=== PATIENT | female | born 1950 | race Caucasian/White ===

== ENCOUNTER 2017-03-02 00:44 | Inpatient (IN) ==
[2017-03-02 01:28] LABS: Basophils % 0.3 %; Eosinophils # 0.1 K/mcL (0.0-0.6); Eosinophils % 0.9 %; Hemoglobin 13.1 g/dL (11.5-15.4); Immature Granulocytes % 0.4 % (0-4); Lymphocytes # 2.6 K/mcL (0.6-4.6); Lymphocytes % 22.5 %; Mean Corpuscular HGB Conc 32.8 g/dL (31.6-35.5); Mean Corpuscular Hemoglobin 28.9 pg (28.0-33.3); Mean Corpuscular Volume 88.3 fL (83.0-100.0); Mean Platelet Volume 9.9 fL (9.4-12.4); Monocytes # 0.5 K/mcL (0.0-1.3); Monocytes % 4.1 %; Neutrophils # 8.3 K/mcL (1.6-8.9); Platelet Count 265 K/mcL (140-400); Red Blood Count 4.53 M/mcL (3.82-4.97); Segmented Neutrophils % 71.8 %
[2017-03-02 01:42] LABS: BUN/Creatinine Ratio 15 (6-26); Blood Urea Nitrogen 13 mg/dL (7-20); Calcium 10.8 mg/dL (8.6-10.8); Carbon Dioxide 27 mEq/L (19-29); Chloride 98 mEq/L (98-109); Glucose 359 mg/dL (70-99); Osmolality,Calculated 301 (280-300); Potassium 3.9 mEq/L (3.5-4.5); Sodium 138 mEq/L (136-145); eGFR For African Americans > 60 (> 60); eGFR For Non-African Americans > 60 (> 60)
[2017-03-02] MEDS ORDERED: Aspirin 81 MG TAB.CHEW PO ONE (04:06)
[2017-03-02] MEDS ORDERED: *HR* Heparin 5,000 UNIT/ML VIAL IVP PRN (04:15)
[2017-03-02] MEDS ORDERED: Heparin 25,000 UNIT/500 ML D5W 25,000 UNIT/500 ML MLS IVC SCH (04:15)
[2017-03-02] MEDS ORDERED: *HR* Heparin 5,000 UNIT/ML VIAL IVP ONE (04:15)
[2017-03-02 04:25] LABS: INR 1.1; Prothrombin Time 11.8 Seconds (9.4-12.1)
[2017-03-02 04:28] LABS: Activated Partial Thrombo Time 28.9 Seconds (26.0-36.0)
--- NOTE | 2017-03-02 05:04 | Emergency Department Note ---
Disposition Clinical Impression: NSTEMI (non-ST elevated myocardial infarction) Chest pain Qualifiers: Chest pain type: chest pain due to myocardial ischemia Ischemic chest pain type : stable angina pectoris Qualified Code(s): I20.8 - Other forms of angina pectoris Disposition: Admitted As Inpatient Condition: Fair Chest Pain HPI - General Chief Complaint: ED Chest Pain Stated Complaint: chest pain Time Seen by Provider: 03/02/17 03:10 Source: patient, family Limitations: no limitations Vital Signs Reviewed: Yes Nursing Notes Reviewed: Yes - History of Present Illness HPI Narrative: 67-year-old female presents to the emergency department with a complaint of sharp mid substernal chest pain which started about 11 PM this evening while she was sitting on her couch watching television. She states the pain radiated to the left shoulder and straight through to her back to the left scapular area. She rated the pain a 9 out of 10 at the worst. At present time she denies any pain and states the pain has resolved. She states the pain was worse with taking a deep breath or with coughing. She has had a dry nonproductive cough for the past several months. She denies any fever. She does have COPD and continues to smoke. She denies any increased shortness of breath with the episode of chest pain. No nausea or vomiting. No diaphoresis. She has a strong cardiac history with prior history of [place], coronary artery stents, CABG, and CHF. Pt complaint: chest pain Onset (ago): hour(s) (1) Duration: constant, now resolved Onset: during rest Pain Location: substernal Severity: severe Severity scale (1-10): 9 Quality: sharp Pain Radiation: LUE, back Improves with: nothing Worsens with: other (Coughing or deep breathing.) Associated symptoms: Reports: cough. Denies: nausea, vomiting, diaphoresis, dyspnea, sense of impending doom, syncope, palpitations, fever, leg swelling Treatments prior to arrival chest pain: nitroglycerin - Related Data Home Medications Medication Instructions Recorded Confirmed ALPRAZolam [Xanax 0.5 MG Tablet] 0.5 mg PO TID 04/30/16 05/09/16 Albuterol Sulfate [Proventil Hfa] 1 puff IH BID PRN 04/30/16 05/09/16 Cyclobenzaprine [Flexeril] 10 mg PO TID 04/30/16 05/09/16 Etodolac 400 mg PO BID 04/30/16 05/09/16 Ezetimibe [Zetia] 10 mg PO DAILY 04/30/16 05/09/16 FluocinoLONE Acet 0.025% CRM 1 appl TP BID 04/30/16 05/09/16 [Fluocinolone Acet 0.025% CRM] Gabapentin [Neurontin] 300 mg PO TID 04/30/16 05/09/16 Insulin ASPART [Novolog Flexpen] 20 unit SQ TID 04/30/16 05/09/16 Insulin Glargine,Hum.rec.anlog 30 unit SQ DAILY 04/30/16 05/09/16 [Lantus Solostar] Metformin HCl [Glucophage] 1,000 mg PO BIDWM 04/30/16 05/09/16 Metoclopramide [Reglan] 5 mg PO ACHS 04/30/16 05/09/16 Niacin [Niaspan] 500 mg PO HS 04/30/16 05/09/16 Nitroglycerin [Nitrostat] 0.4 mg SL AD PRN 04/30/16 05/09/16 Omeprazole [PriLOSEC] 40 mg PO BID 04/30/16 05/09/16 Pioglitazone [Actos] 45 mg PO DAILY 04/30/16 05/09/16 Potassium Chloride [K-Tab ER] 10 meq PO DAILY 04/30/16 05/09/16 Sertraline [Zoloft] 25 mg PO DAILY 04/30/16 05/09/16 traMADol [Ultram] 50 mg PO TID PRN 04/30/16 05/09/16 Previous Rx's Medication Instructions Recorded Oxycodone HCl/Acetaminophen 1 each PO Q6HR PRN #10 tablet 03/04/16 [Percocet 5-325 mg Tablet] Aspirin Enteric Coated [Aspirin EC] 81 mg PO DAILY #30 tablet. 05/03/16 Atorvastatin Calcium [Lipitor] 80 mg PO HS #30 tablet 05/10/16 Lisinopril 2.5 mg PO DAILY #30 tablet 05/10/16 Metoprolol XL (24 HR) Succ [Toprol 12.5 mg PO DAILY #15 tab.er.24h 05/10/16 Xl] Ranolazine [Ranexa] 500 mg PO BID #60 tab.er.12h 05/10/16 Ticagrelor [Brilinta] 90 mg PO BID #60 tablet 05/10/16 Allergies Allergy/AdvReac Type Severity Reaction Status Date / Time acetaminophen [From Vicodin] Allergy Hives Verified 03/04/16 11:14 codeine Allergy Itching Verified 05/09/16 08:45 hydrocodone [From Vicodin] Allergy Hives Verified 03/04/16 11:14 Penicillins Allergy Rash Verified 03/04/16 11:14 isosorbide AdvReac Headache Verified 03/04/16 11:14 All systems ED: reviewed and negative except as stated. Constitutional: Denies: fever Cardiovascular: Reports: chest pain Respiratory: Reports: cough. Denies: dyspnea Gastrointestinal: Denies: abdominal pain, nausea, vomiting Musculoskeletal: Reports: back pain. Denies: neck pain Chest Pain PMH - Past Medical History Medical history: Reports: CHF, coronary artery disease, diabetes, hyperlipidemia , hypertension, myocardial infarction Surgical history: Reports: angioplasty/stent, coronary bypass (CABG), hysterectomy Psychiatric history: Reports: depression - Social History Smoking Status: Current some day smoker Alcohol use: Reports: none Drug use: Reports: none Physical Exam - General Limitations: no limitations General appearance: alert, in no apparent distress, anxious - Head Head exam: atraumatic, normocephalic, normal inspection - Eye Eye exam: Present: normal appearance, PERRL, EOMI. Absent: scleral icterus, conjunctival injection - ENT ENT exam: normal exam, normal oropharynx, mucous membranes moist, TM's normal bilaterally, normal external ear exam - Neck Neck exam: Present: normal inspection, full ROM, trachea midline. Absent: tenderness, meningismus, lymphadenopathy - Chest Chest inspection: Present: normal inspection, symmetric chest wall rise, tenderness (There is mild tenderness to palpation over the anterior chest wall with no bony crepitus or subcutaneous emphysema.) - Respiratory Respiratory exam: Present: wheezes (A few scattered expiratory wheezes.). Absent: normal lung sounds bilaterally (Breath sounds decreased bilaterally.), respiratory distress - Cardiovascular Cardiovascular exam: Present: regular rate, normal rhythm, normal heart sounds - Abdominal Exam Abdominal exam: Present: soft, Non-Tender, normal bowel sounds - Extremities Exam Extremities exam: Present: normal inspection, full ROM. Absent: tenderness, calf tenderness - Back Exam Back exam: Present: normal inspection. Absent: CVA tenderness (R), CVA tenderness (L) - Neurological Exam Neurological exam: Present: alert, oriented X3. Absent: motor sensory deficit - Psychiatric Psychiatric exam: Present: anxious - Skin Skin exam: Present: warm, dry, intact, normal color. Absent: cyanosis, diaphoresis Course Course Narrative: 67-year-old female with strong cardiac history presents to the emergency department with a complaint of an episode of substernal chest pain while at rest. Describes pain as sharp and pleuritic and worse with coughing or deep breathing. Pain does not sound cardiac. No acute changes on EKG. Initial troponin 0.01. Plan was to repeat a troponin after 2 hours and if it remains normal to let patient go home and follow-up as an outpatient however the repeat troponin was significantly elevated at 0.19. The hospitalist, Dr. De Guzman, was consulted and accepted admission of the patient. Patient received aspirin and started on low dose heparin bolus and infusion. - Consultations Consultation #1: The hospitalist, Dr. De Guzman, was consulted and accepted admission of the patient. Time: 04:10 Vital Signs Temperature 97.4 F L 03/02/17 00:47 Pulse Rate 89 03/02/17 00:47 Respiratory Rate 18 03/02/17 00:47 Blood Pressure 139/54 03/02/17 00:47 O2 Sat by Pulse Oximetry 96 03/02/17 00:47 Temperature 97.5 F L 03/02/17 07:27 Pulse Rate 85 03/02/17 07:27 Respiratory Rate 18 03/02/17 07:27 Blood Pressure 104/58 03/02/17 07:27 O2 Sat by Pulse Oximetry 96 03/02/17 07:27 Oxygen Delivery Oxygen Delivery Room Air Chest Pain - Medical Records Medical records reviewed: Yes I reviewed the patient's medical records. - Lab Data Lab results reviewed: Yes I reviewed the patient's lab results. Result diagrams: 03/02/17 01:20 03/02/17 01:20 Lab Results 03/02/17 03/02/17 03/02/17 Range/Units 01:20 01:20 01:20 WBC 11.6 H (4.3-11.1) K/mcL RBC 4.53 (3.82-4.97) M/mcL Hgb 13.1 (11.5-15.4) g/dL Hct 40.0 (35.3-44.9) % MCV 88.3 (83.0-100.0) fL MCH 28.9 (28.0-33.3) pg MCHC 32.8 (31.6-35.5) g/dL RDW 14.0 (11.5-14.5) % Plt Count 265 (140-400) K/mcL MPV 9.9 (9.4-12.4) fL Immature Gran % 0.4 (0-4) % Seg Neutrophils % 71.8 % Lymphocytes % 22.5 % Monocytes % 4.1 % Eosinophils % 0.9 % Basophils % 0.3 % Neutrophils # 8.3 (1.6-8.9) K/mcL Lymphocytes # 2.6 (0.6-4.6) K/mcL Monocytes # 0.5 (0.0-1.3) K/mcL Eosinophils # 0.1 (0.0-0.6) K/mcL Basophils # 0.0 (0.0-0.2) K/mcL PT (9.4-12.1) Seconds INR APTT (26.0-36.0) Seconds Sodium 138 (136-145) mEq/L Potassium 3.9 (3.5-4.5) mEq/L Chloride 98 (98-109) mEq/L Carbon Dioxide 27 (19-29) mEq/L BUN 13 (7-20) mg/dL Creatinine 0.84 (0.57-1.11) mg/dL Est GFR ( Amer) > 60 (> 60) Est GFR (Non-Af Amer) > 60 (> 60) BUN/Creatinine Ratio 15 (6-26) Glucose 359 H (70-99) mg/dL Calculated Osmolality 301 H (280-300) Calcium 10.8 (8.6-10.8) mg/dL Troponin I 0.01 (0-0.03) ng/mL 03/02/17 03/02/17 Range/Units 01:20 03:29 WBC (4.3-11.1) K/mcL RBC (3.82-4.97) M/mcL Hgb (11.5-15.4) g/dL Hct (35.3-44.9) % MCV (83.0-100.0) fL MCH (28.0-33.3) pg MCHC (31.6-35.5) g/dL RDW (11.5-14.5) % Plt Count (140-400) K/mcL MPV (9.4-12.4) fL Immature Gran % (0-4) % Seg Neutrophils % % Lymphocytes % % Monocytes % % Eosinophils % % Basophils % % Neutrophils # (1.6-8.9) K/mcL Lymphocytes # (0.6-4.6) K/mcL Monocytes # (0.0-1.3) K/mcL Eosinophils # (0.0-0.6) K/mcL Basophils # (0.0-0.2) K/mcL PT 11.8 (9.4-12.1) Seconds INR 1.1 APTT 28.9 (26.0-36.0) Seconds Sodium (136-145) mEq/L Potassium (3.5-4.5) mEq/L Chloride (98-109) mEq/L Carbon Dioxide (19-29) mEq/L BUN (7-20) mg/dL Creatinine (0.57-1.11) mg/dL Est GFR ( Amer) (> 60) Est GFR (Non-Af Amer) (> 60) BUN/Creatinine Ratio (6-26) Glucose (70-99) mg/dL Calculated Osmolality (280-300) Calcium (8.6-10.8) mg/dL Troponin I 0.19 H* (0-0.03) ng/mL - Radiology Data Radiology results reviewed: Yes I reviewed the patient's radiology results. No acute abnormality on chest x-ray. - EKG Data EKG attestation: Yes I reviewed and interpreted this EKG. EKG results narrative: EKG shows a normal sinus rhythm with a heart rate of 86. Nonspecific T-wave abnormality. No acute ST segment elevation or depression. EKG shows normal: sinus rhythm Rate: normal Rhythm: NSR Interpretation: no acute changes, nonspecific ST-T wave changes Critical Care Time Critical Care Time: Yes Total Critical Care Time: 45 Attestation: Critical care performed: Time is exclusive of separately billable procedures. Time includes: direct patient care, patient reassessment, coordination of patient care, interpretation of data (laboratory data, radiology data, and respiratory data), review of patient's medical records, medical consultation and documentation of patient care. Procedures included in critical care time: Procedures excluded from critical care time:
--- NOTE | 2017-03-02 05:29 | Internal Med History&Physical ---
Date of Encounter: 03/02/17 Time of Encounter: 05:26 Assessment and Plan (1) Chest pain Current visit: Yes Status: Acute chests pain free now, possible 2/2 NSTEMI. took 3 nitro at home and received morphine at ED. Qualifiers: Chest pain type: chest pain due to myocardial ischemia Ischemic chest pain type: stable angina pectoris Qualified Code(s): I20.8 - Other forms of angina pectoris (2) NSTEMI (non-ST elevated myocardial infarction) Current visit: No Status: Acute initial trop negative, repeat trop is 0.19 cureently chest pain free, have started on heparin drip. will continue asa,plavix, statin adn BB, hemodynamically stable. will keep NPO, may need C consult cardio. 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 taking DAPT (ASA and Brilinta) , will continue continue otehr home meds Qualifiers: [place] vs. transplanted heart: [place] heart Associated angina: with other forms of angina Qualified Code(s): I25.118 - Atherosclerotic heart disease of [place] coronary artery with other forms of angina pectoris (5) HTN (hypertension) Current visit: No Status: Chronic continue home meds, BP controlled Qualifiers: Hypertension type: essential hypertension Qualified Code(s): I10 - Essential (primary) hypertension Internal Medicine - H&P: HPI Chief complaint: chest pain Admitted From: Home Plans for Post Hospital Care: Home History of present illness: Ms. Whitmore is a 67 year old female with a history of CAD s/p stent in 2003 and 05/11 and CABG in 2005 comes in with chest pain. she says she had a ham sandwich last night and was watching TVwhen she felt the chest pain which was midsternal and radiated to her neck and the back. she deies n/v/diaphoresis. she reports dry hacking cough but no fever. titus took 3 nitro at home which did not relieve her pain, thus came to ed. she was given morphine, initial trop is neg, repeat trop went up to 0.19 and was started on heparin drip she reports compliance to her meds. Past Med Surg Social Fam HX - Past Medical History Medical history: CHF, coronary artery disease, diabetes, hyperlipidemia, hypertension, myocardial infarction Psychiatric history: depression - Past Surgical History Surgical History: angioplasty/stent, coronary bypass (CABG), hysterectomy - Social History Smoking Status: Current some day smoker Smokeless Tobacco Status: No Alcohol use: none Drug use: none Internal Medicine - H&P: Meds Oxycodone HCl/Acetaminophen [Percocet 5-325 mg Tablet] 1 each PO Q6HR PRN #10 tablet 03/04/16 [Rx] ALPRAZolam [Xanax 0.5 MG Tablet] 0.5 mg PO TID 04/30/16 [History] Albuterol Sulfate [Proventil Hfa] 1 puff IH BID PRN 04/30/16 [History] Cyclobenzaprine [Flexeril] 10 mg PO TID 04/30/16 [History] Etodolac 400 mg PO BID 04/30/16 [History] Ezetimibe [Zetia] 10 mg PO DAILY 04/30/16 [History] FluocinoLONE Acet 0.025% CRM [Fluocinolone Acet 0.025% CRM] 1 appl TP BID [History] Gabapentin [Neurontin] 300 mg PO TID 04/30/16 [History] Insulin ASPART [Novolog Flexpen] 20 unit SQ TID 04/30/16 [History] Insulin Glargine,Hum.rec.anlog [Lantus Solostar] 30 unit SQ DAILY 04/30/16 [ History] Metformin HCl [Glucophage] 1,000 mg PO BIDWM 04/30/16 [History] Metoclopramide [Reglan] 5 mg PO ACHS 04/30/16 [History] Niacin [Niaspan] 500 mg PO HS 04/30/16 [History] Nitroglycerin [Nitrostat] 0.4 mg SL AD PRN 04/30/16 [History] Omeprazole [PriLOSEC] 40 mg PO BID 04/30/16 [History] Pioglitazone [Actos] 45 mg PO DAILY 04/30/16 [History] Potassium Chloride [K-Tab ER] 10 meq PO DAILY 04/30/16 [History] Sertraline [Zoloft] 25 mg PO DAILY 04/30/16 [History] traMADol [Ultram] 50 mg PO TID PRN 04/30/16 [History] Aspirin Enteric Coated [Aspirin EC] 81 mg PO DAILY #30 tablet.dr 05/03/16 [Rx] Atorvastatin Calcium [Lipitor] 80 mg PO HS #30 tablet 05/10/16 [Rx] Lisinopril 2.5 mg PO DAILY #30 tablet 05/10/16 [Rx] Metoprolol XL (24 HR) Succ [Toprol Xl] 12.5 mg PO DAILY #15 tab.er.24h 05/10/16 [Rx] Ranolazine [Ranexa] 500 mg PO BID #60 tab.er.12h 05/10/16 [Rx] Ticagrelor [Brilinta] 90 mg PO BID #60 tablet 05/10/16 [Rx] Allergies acetaminophen [From Vicodin] Allergy (Verified 03/04/16 11:14) Hives codeine Allergy (Verified 05/09/16 08:45) Itching hydrocodone [From Vicodin] Allergy (Verified 03/04/16 11:14) Hives Penicillins Allergy (Verified 03/04/16 11:14) Rash isosorbide Adverse Reaction (Verified 03/04/16 11:14) Headache All Systems PM: A 10-system review of systems was performed and is negative for pertinent findings except as documented above in the HPI. - Constitutional Constitutional: as per HPI - EENT Eyes: as per HPI Ears: as per HPI Nose, mouth and throat: as per HPI - Breasts Breasts: as per HPI - Cardiovascular Cardiovascular ROS IM: chest pain - Respiratory Respiratory: as per HPI - Gastrointestinal Gastrointestinal: as per HPI - Genitourinary Genitourinary: as per HPI - Constitutional Vitals: Temp Pulse Resp BP Pulse Ox 97.4 F L 85 18 103/61 95 03/02/17 00:47 03/02/17 04:57 03/02/17 04:57 03/02/17 04:57 03/02/17 04:57 General appearance: Present: A&O X 3, no acute distress Exam: - Eye Eye exam: Present: PERRL - ENT ENT exam: Present: mucous membranes moist - Neck Neck exam general surgery: Present: normal inspection - Respiratory Respiratory exam: Present: CTAB. Absent: rales, rhonchi - Cardiovascular Cardiovascular exam: Present: RRR, +S1, +S2. Absent: gallop, +S3 Additional comments: Central scar on chest wall - GI/Abdominal GI/Abdominal exam: Present: normal bowel sounds, soft. Absent: tenderness - Extremities Exam no edema - Back Exam Back exam: Present: normal inspection - Neurological Exam Neurological exam: Present: normal gait Internal Med - H&P Results - Labs CBC & Chem 7: 03/02/17 01:20 03/02/17 01:20
[2017-03-02] MEDS ORDERED: Naloxone 0.4 MG/ML INJ IVP PRN (05:35)
[2017-03-02] MEDS ORDERED: *HR* Morphine 2 MG/ML SYRINGE IVP PRN (05:35)
[2017-03-02] MEDS ORDERED: Nitroglycerin 0.4 MG TAB.SUBL SL PRN (05:37)
[2017-03-02] MEDS ORDERED: 0.9 % Sodium Chloride 250 ML ONE (05:58)
[2017-03-02] MEDS: Aspirin Enteric Coated 81 MG Tablet PO SCH (08:49)
[2017-03-02] MEDS: ALPRAZolam 0.5 MG TABLET PO SCH ×3 (08:49→21:13)
[2017-03-02] MEDS: Metoprolol XL (24 HR) Succ 25 MG TAB.ER.24H PO SCH (08:49)
[2017-03-02] MEDS: Ranolazine 500 MG TAB.ER.12H PO SCH ×2 (08:49→21:13)
[2017-03-02] MEDS: *HR* Ticagrelor 90 MG TABLET PO SCH ×2 (08:50→21:13)
[2017-03-02] MEDS: (Ezetimibe [Zetia] 10 MG) PO SCH (08:50)
[2017-03-02] MEDS: 0.9 % Sodium Chloride 1,000 ML IVC SCH ×2 (09:18→21:14)
[2017-03-02] MEDS: *HR* Heparin 5,000 UNIT/ML VIAL IVP PRN ×2 (11:06→17:17)
--- NOTE | 2017-03-02 11:34 | Cardiology Consult Note ---
<Angelique Montoya Dominic - Last Filed: 03/02/17 12:09> Date of Encounter: 03/02/17 Time of Encounter: 11:00 Assessment and Plan (1) NSTEMI (non-ST elevated myocardial infarction) Current Visit: Yes Status: Acute Initial troponin negative, 0.19, 2.81. Non-specific ST/T wave ECG changes. Pain free upon exam. Significant hx of obstructive CAD--recent LM stent in 04/2016. Reports may have missed dose (s) of brilinta early this week. Continue heparin gtt. Start NTG gtt if develops chest pain. Continue statin, brilinta, ranexa, and betablocker. Will check limited echocardiogram to assess LVEF. Recommend [facility] with possible PCI in AM--will further discuss with Dr. Muñiz. NPO after MN except medications. Further recommendations to follow. (2) CAD (coronary artery disease) Current Visit: Yes Status: Chronic Plan as stated above. Discussion w patient/family: The assessment and plan as outlined above was discussed with the patient and/or family members who expressed understanding and agreement. All questions were answered. Thank you for involving us in the care of your patient. Please call with any questions. The patient will be discussed and reviewed with Dr. Muñiz; changes to be made accordingly. History of Present Illness Consult date: 03/02/17 Requesting physician: Terrance Tatum Consult reason: NSTEMI Chief complaint: Chest pain History of present illness: Ms. Whitmore is a 67 year old female with PMHx significant for CAD s/p CABG, PCI, DMII, HTN, HLD, and tobacco abuse who presented to the ED after an episode of chest pain that occurred around 11PM last night. She tells me she feels the pain was provoked by a coughing spell that occurred a few hours earlier. Chest pain described as heaviness/pressure with radiation to left arm/shoulder/neck. She took x2 NTG at home which did not improve pain; she therefore went to the ED. States she was in her normal state of health up until yesterday. States may have missed a dose of brilinta this past week. Initial troponin negative, then 0.19. No concerning ECG changes noted. Recent CV testing: TTE 05/02/16: LVEF 60%, normal wall motion, no significant valvular dysfunction LHC 05/03/16: LVEF 45% inferoapical hypokinesis; s/p successful PTCA/NAYELY in the ostial proximal RCA; otherwise 70% LMCA, 20% pLAD, 99% pLCX (SVG-OM supplies ); SVG-1st OM is patent, distal OM small vessel with 90% stenosis, DEAN-mLAD is nonfunctional [facility] 05/09/16 (staged): successful PTCA/NAYELY in the LM postdilated with 3.5 NC with IVUS guidance. Past Med Surg Social Fam HX - Past Medical History Medical history: coronary artery disease, diabetes, hyperlipidemia, hypertension , myocardial infarction Psychiatric history: depression - Past Surgical History Surgical History: angioplasty/stent, coronary bypass (CABG), hysterectomy - Social History Smoking Status: Current some day smoker Smokeless Tobacco Status: No Alcohol use: none Drug use: none Medications and Allergies Oxycodone HCl/Acetaminophen [Percocet 5-325 mg Tablet] 1 each PO Q6HR PRN #10 tablet 03/04/16 [Rx] ALPRAZolam [Xanax 0.5 MG Tablet] 0.5 mg PO TID 04/30/16 [History] Albuterol Sulfate [Proventil Hfa] 1 puff IH BID PRN 04/30/16 [History] Cyclobenzaprine [Flexeril] 10 mg PO TID 04/30/16 [History] Etodolac 400 mg PO BID 04/30/16 [History] Ezetimibe [Zetia] 10 mg PO DAILY 04/30/16 [History] FluocinoLONE Acet 0.025% CRM [Fluocinolone Acet 0.025% CRM] 1 appl TP BID [History] Gabapentin [Neurontin] 300 mg PO TID 04/30/16 [History] Insulin ASPART [Novolog Flexpen] 20 unit SQ TID 04/30/16 [History] Insulin Glargine,Hum.rec.anlog [Lantus Solostar] 30 unit SQ DAILY 04/30/16 [ History] Metformin HCl [Glucophage] 1,000 mg PO BIDWM 04/30/16 [History] Metoclopramide [Reglan] 5 mg PO ACHS 04/30/16 [History] Niacin [Niaspan] 500 mg PO HS 04/30/16 [History] Nitroglycerin [Nitrostat] 0.4 mg SL AD PRN 04/30/16 [History] Omeprazole [PriLOSEC] 40 mg PO BID 04/30/16 [History] Pioglitazone [Actos] 45 mg PO DAILY 04/30/16 [History] Potassium Chloride [K-Tab ER] 10 meq PO DAILY 04/30/16 [History] Sertraline [Zoloft] 25 mg PO DAILY 04/30/16 [History] traMADol [Ultram] 50 mg PO TID PRN 04/30/16 [History] Aspirin Enteric Coated [Aspirin EC] 81 mg PO DAILY #30 tablet.dr 05/03/16 [Rx] Atorvastatin Calcium [Lipitor] 80 mg PO HS #30 tablet 05/10/16 [Rx] Lisinopril 2.5 mg PO DAILY #30 tablet 05/10/16 [Rx] Metoprolol XL (24 HR) Succ [Toprol Xl] 12.5 mg PO DAILY #15 tab.er.24h 05/10/16 [Rx] Ranolazine [Ranexa] 500 mg PO BID #60 tab.er.12h 05/10/16 [Rx] Ticagrelor [Brilinta] 90 mg PO BID #60 tablet 05/10/16 [Rx] Allergies acetaminophen [From Vicodin] Allergy (Verified 03/02/17 11:44) Hives hydrocodone [From Vicodin] Allergy (Verified 03/02/17 11:44) Hives Penicillins Allergy (Verified 03/02/17 11:44) Rash codeine Adverse Reaction (Verified 03/02/17 11:44) Itching isosorbide Adverse Reaction (Verified 03/02/17 11:44) Headache All Systems Review: A 10-system review of systems was performed and is negative for pertinent findings except as documented above in the HPI. - Cardiovascular Cardiovascular: as per HPI Physical Examination Vital Signs, Last 4 Hours Temp Pulse Resp BP Pulse Ox 03/02/17 10:30 97.6 F 88 18 129/65 96 03/02/17 08:50 96 03/02/17 07:27 97.5 F L 85 18 104/58 96 General: Conversant, No Apparent Distress HEENT: Atraumatic, Normocephaly, Mucus Membranes Moist Cardiac: Reg Rate and Rhythm, Normal S1 and S2 Lungs: Normal Breath Sounds Neuro: Alert and responsive Abdomen: Soft Skin: No rashes noted on visualized skin Musculoskeletal: No Chest Wall Tenderness Extremities: No Edema, Normal Pulses Results 03/02/17 01:20 03/02/17 01:20 Lab Results 03/02/17 03/02/17 10:18 10:18 APTT 42.5 H Troponin I 2.81 H* Active Medications Alprazolam (Xanax) 0.5 mg PO TID [place] PRN Reason: Protocol Stop: 09/01/17 09:01 Last Admin: 03/02/17 08:49 Dose: 0.5 mg Aspirin (Aspirin Ec) 81 mg PO DAILY [place] Stop: 09/01/17 09:01 Last Admin: 03/02/17 08:49 Dose: 81 mg Atorvastatin Calcium (Lipitor) 80 mg PO HS [facility] Stop: 09/01/17 21:01 Cyclobenzaprine HCl (Flexeril) 10 mg PO TID [place] Stop: 09/01/17 09:01 Last Admin: 03/02/17 08:50 Dose: 10 mg Heparin Sodium (Porcine) (Heparin) 3,100 unit 60 unit/kg (3100 unit) IVP Q6HR PRN PRN Reason: SEE COMMENTS Stop: 09/01/17 04:16 Heparin Sodium (Porcine) (Heparin) 1,600 unit 30 unit/kg (1600 unit) IVP Q6H PRN PRN Reason: SEE COMMENTS Stop: 09/01/17 04:16 Last Admin: 03/02/17 11:06 Dose: 1,600 unit Heparin Sodium/Dextrose (Heparin 25,000 Unit/500 Ml D5w) 25,000 unit in 500 mls @ 12.41 mls/hr IVC .Q24H [place]; 12 UNIT/KG/HR PRN Reason: Protocol Stop: 09/01/17 04:16 Last Titration: 03/02/17 11:09 Dose: 14 unit/kg/hr, 14.479 mls/hr Sodium Chloride (0.9 % Sodium Chloride) 1,000 mls @ 80 mls/hr IVC .[id number] [facility] Stop: 09/01/17 05:46 Last Admin: 03/02/17 09:18 Dose: 80 mls/hr Lisinopril (Zestril) 2.5 mg PO DAILY [place] Stop: 09/01/17 09:01 Last Admin: 03/02/17 08:50 Dose: Not Given Metoprolol Succinate (Toprol Xl) 12.5 mg PO DAILY [place] Stop: 09/01/17 09:01 Last Admin: 03/02/17 08:49 Dose: 12.5 mg Morphine Sulfate (Morphine Sulfate) 2 mg IVP Q4HR PRN PRN Reason: Severe Pain (7-10) Stop: 09/01/17 05:36 Last Admin: 03/02/17 11:19 Dose: 2 mg Naloxone HCl (Narcan) 0.4 mg IVP Q2MIN PRN PRN Reason: Opioid Reversal Stop: 09/01/17 05:36 Nitroglycerin (Nitroglycerin) 0.4 mg SL AD PRN PRN Reason: Chest Pain Stop: 09/01/17 05:38 Pharmacy Profile Note (Patient Taking Own Medication) 0 each PO DAILY [place] Stop: 09/01/17 09:01 Last Admin: 03/02/17 08:50 Dose: Not Given Ranolazine (Ranexa) 500 mg PO BID [place] Stop: 09/01/17 09:01 Last Admin: 03/02/17 08:49 Dose: 500 mg Sertraline HCl (Zoloft) 25 mg PO DAILY [place] Stop: 09/01/17 09:01 Last Admin: 03/02/17 08:50 Dose: 25 mg Ticagrelor (Brilinta) 90 mg PO BID [place] Stop: 09/01/17 09:01 Last Admin: 03/02/17 08:50 Dose: 90 mg - Imaging and Cardiology Echo: report reviewed Cardiac cath: report reviewed Other Results: 12 hour tele: avg HR=84 SR. No significant event noted. - EKG Interpretation EKG results cardiology: personally reviewed Consult Discharge Plan - Plan Referrals: aDna Paige, [employer]PERVISOR [Primary Care Provider] - <Ellen Muñiz - Last Filed: 03/02/17 16:20> Date of Encounter: 03/02/17 Assessment and Plan Discussion w patient/family: The assessment and plan as outlined above was discussed with the patient and/or family members who expressed understanding and agreement. All questions were answered. Thank you for involving us in the care of your patient. Please call with any questions. History of Present Illness History of present illness: Ms. Whitmore is a 67 year old female All Systems Review: A 10-system review of systems was performed and is negative for pertinent findings except as documented above in the HPI. Physical Examination Vital Signs, Last 4 Hours Temp Pulse Resp BP Pulse Ox 03/02/17 15:04 97.4 F L 81 16 101/59 96 Results 03/02/17 01:20 03/02/17 01:20 Lab Results 03/02/17 03/02/17 10:18 10:18 APTT 42.5 H Troponin I 2.81 H* - Attending Attestation I examined this patient and my medical decision-making was reviewed with the OPERATIONS RESEARCH ENGINEER/PA/Advanced Practice Nurse/Resident Physician. I agree with the documented findings, disposition and treatment plan. Ms. Whitmore presented with an episode of chest pain and has troponin elevation. She has known CAD having undergone cath with PCI in April 2016. She is not sure if she missed her Brilinta this week. Her troponin now has risen to 2.[address] changes on ECG. Recommend consideration for LHC given NTEMI. She is presently chest pain free. Will discuss with her primary [employer] police officer and interventionalist, Dr. Hutton tomorrow. For now, agree with continuing heparin gtt, statin, brilinta, ranexa and BB. Echo pending.
--- NOTE | 2017-03-02 12:10 | Internal Med Progress Note ---
<Reji Valencia - Last Filed: 03/02/17 13:28> Date of Encounter: 03/02/17 Time of Encounter: 10:00 - Assessment and plan (1) Chest pain Current Visit: Yes Status: Acute Assessment and plan: Patient denies having chest pain at the present time. -Patient's chest pain was likely secondary to NSTEMI. -Patient took 3 nitroglycerin at home when she started experiencing her chest pain, but they were ineffective. -Cardiology has been consulted. Qualifiers: Chest pain type: chest pain due to myocardial ischemia Ischemic chest pain type: stable angina pectoris Qualified Code(s): I20.8 - Other forms of angina pectoris (2) NSTEMI (non-ST elevated myocardial infarction) Current Visit: Yes Status: Acute Assessment and plan: Patient's initial troponin levels were negative. Repeat troponin levels were 0.19. -This morning however patient's troponin levels increased to 2.81. -Patient was immediately seen, and had no significant findings on physical exam. -She did not having any chest pain, sweating, nausea, vomiting, shortness of breath. (3) HTN (hypertension) Current Visit: No Status: Chronic Assessment and plan: Continue Home medications. Qualifiers: Hypertension type: essential hypertension Qualified Code(s): I10 - Essential (primary) hypertension (4) Type 2 diabetes mellitus Current Visit: No Status: Chronic Qualifiers: Diabetes mellitus complication status: with unspecified complications Diabetes mellitus intermediate school teacher insulin use: unspecified intermediate school teacher insulin use status Qualified Code(s): E11.8 - Type 2 diabetes mellitus with unspecified complications - Subjective Interval history: Patient is a 67-year-old female who presented to the emergency department with chief complaint of chest pain. She has a past medical history of coronary artery disease. She states that she was eating dinner last night watching TV when she felt a chest pain in her substernal area. She attempted to relieve the pain with nitroglycerin, but it was ineffective. On presentation, she had a dry hacking cough, but no nausea, vomiting, fever, or sweating. In the ER, she was given morphine, her initial troponin levels were negative, and a repeat troponin was 0.19. Patient was started on a heparin drip. She was seen and examined at bedside this morning. She denied having any chest pain, shortness of breath, nausea, vomiting, or sweating. She states that the only pain that she is currently experiencing is in her knees, and that this is a problem she has had for many years. - Constitutional Vitals: Temp Pulse Resp BP Pulse Ox 97.6 F 88 18 129/65 96 03/02/17 10:30 03/02/17 10:30 03/02/17 10:30 03/02/17 10:30 03/02/17 10:30 General appearance: Present: A&O X 3, no acute distress - ENT ENT exam: Present: mucous membranes moist - Respiratory Respiratory exam: Present: CTAB. Absent: accessory muscle use, rales, rhonchi, wheezes - Cardiovascular Cardiovascular exam: Present: RRR, +S1, +S2. Absent: diastolic murmur, gallop, rubs, systolic murmur - GI/Abdominal GI/Abdominal exam: Present: normal bowel sounds, soft, no peritoneal signs. Absent: distended, tenderness - Expanded Lower Extremities Exam Knee exam: Present: tenderness (Patient states that she feels pain in both of her knees, particularly when she attempts to fully extend them. She feels a popping sensation in both of her knees when she extends them.). Absent: crepitus Internal Medicine: Result - Labs CBC & Chem 7: 03/02/17 01:20 03/02/17 01:20 Labs: Cardiac Enzymes 03/02/17 Range/Units 10:18 Troponin I 2.81 H* (0-0.03) ng/mL - ABG Interpretation ABG results: PT/INR, D-dimer PT 11.8 Seconds (9.4-12.1) 03/02/17 01:20 Consult Discharge Plan - Plan Referrals: Dana Paige, CONDUCTOR FREIGHT [Primary Care Provider] - <Leo Dickson - Last Filed: 03/02/17 14:23> Date of Encounter: 03/02/17 - Constitutional Vitals: Temp Pulse Resp BP Pulse Ox 97.6 F 88 18 129/65 96 03/02/17 10:30 03/02/17 10:30 03/02/17 10:30 03/02/17 10:30 03/02/17 10:30 Internal Medicine: Result - Labs CBC & Chem 7: 03/02/17 01:20 03/02/17 01:20 Labs: Cardiac Enzymes 07/09/17 Range/Units 10:18 Troponin I 2.81 H* (0-0.03) ng/mL - ABG Interpretation ABG results: PT/INR, D-dimer PT 11.8 Seconds (9.4-12.1) 03/02/17 01:20 - Attending Attestation I examined this patient and my medical decision-making was reviewed with the Resident Physician on 03/02/17. I agree with the documented findings, disposition and treatment plan as described except to the extent set forth below. Ms Whitmore is currently admitted for acute NSTEMI. She was admitted earlier today. Her troponin has increased. She has no chest pain at this time. She is on heparin drip. Exam Alert and comfortable I/P 1. NSTEMI - heparin [facility] tomorrow.
[2017-03-03 05:19] LABS: Basophils # 0.1 K/mcL (0.0-0.2); Basophils % 0.6 %; Eosinophils # 0.1 K/mcL (0.0-0.6); Eosinophils % 1.4 %; Hematocrit 39.1 % (35.3-44.9); Hemoglobin 13.1 g/dL (11.5-15.4); Immature Granulocytes % 0.3 % (0-4); Lymphocytes # 3.2 K/mcL (0.6-4.6); Lymphocytes % 40.3 %; Mean Corpuscular HGB Conc 33.5 g/dL (31.6-35.5); Mean Corpuscular Hemoglobin 29.4 pg (28.0-33.3); Mean Corpuscular Volume 87.9 fL (83.0-100.0); Mean Platelet Volume 10.3 fL (9.4-12.4); Monocytes # 0.4 K/mcL (0.0-1.3); Monocytes % 4.9 %; Neutrophils # 4.2 K/mcL (1.6-8.9); Platelet Count 232 K/mcL (140-400); Red Blood Count 4.45 M/mcL (3.82-4.97); Red Cell Distribution Width 14.1 % (11.5-14.5); Segmented Neutrophils % 52.5 %
[2017-03-03 05:36] LABS: BUN/Creatinine Ratio 13 (6-26); Blood Urea Nitrogen 10 mg/dL (7-20); Carbon Dioxide 24 mEq/L (19-29); Chloride 107 mEq/L (98-109); Glucose 231 mg/dL (70-99); Osmolality,Calculated 296 (280-300); Potassium 3.5 mEq/L (3.5-4.5); Sodium 140 mEq/L (136-145); eGFR For African Americans > 60 (> 60); eGFR For Non-African Americans > 60 (> 60)
[2017-03-03] MEDS ORDERED: *HR* Dextrose 50 % in Water (Syg) 50 ML SYRINGE IVP PRN (07:47)
[2017-03-03] MEDS ORDERED: D5% in Water 1,000 ML IVC PRN (07:47)
[2017-03-03] MEDS ORDERED: Dextrose Gel 15 GM PO PRN ×2 (07:47)
[2017-03-03] MEDS: *HR* Ticagrelor 90 MG TABLET PO SCH (08:02)
[2017-03-03] MEDS: Ranolazine 500 MG TAB.ER.12H PO SCH (08:02)
[2017-03-03] MEDS: Aspirin Enteric Coated 81 MG Tablet PO SCH (08:03)
[2017-03-03] MEDS ORDERED: Nitroglycerin 1,000 MCG/10 ML VIAL IV ONE (08:03)
[2017-03-03] MEDS: (Ezetimibe [Zetia] 10 MG) PO SCH (08:03)
[2017-03-03] MEDS: Metoprolol XL (24 HR) Succ 25 MG TAB.ER.24H PO SCH (08:03)
[2017-03-03] MEDS: ALPRAZolam 0.5 MG TABLET PO SCH (08:03)
[2017-03-03] MEDS ORDERED: Heparin 1,000 UNITS/500 mL NS 500 ML ONE (08:03)
[2017-03-03] MEDS ORDERED: *HR* Heparin 10,000 UNIT/10 ML VIAL ONE (08:03)
[2017-03-03] MEDS ORDERED: 0.9 % Sodium Chloride 1,000 ML ONE (08:03)
[2017-03-03] MEDS ORDERED: *HR* Midazolam HCl 2 MG/2 ML VIAL ONE (08:16)
[2017-03-03] MEDS ORDERED: *HR* FentaNYL (PF) 100 MCG/2 ML VIAL ONE (08:17)
[2017-03-03] MEDS ORDERED: 0.9 % Sodium Chloride 500 ML ONE (08:39)
--- NOTE | 2017-03-03 08:41 | Pre-Sedation Evaluation ---
Pre-sedation evaluation - Pre-sedation checklist Date of procedure: 03/03/17 Procedure: [facility] Recent Vitals: Last Vital Signs Temp 98.1 F 03/03/17 07:22 Pulse 79 03/03/17 07:22 Resp 16 03/03/17 07:22 BP 134/61 03/03/17 07:22 Pulse Ox 94 03/03/17 08:11 H&P (including ROS) documented in medical record: Yes Previous reaction to sedatives/anesthetics: No Dietary Status: NPO after Midnight Dentition: No loose teeth or bridges ASA Classification *see protocol: CLASS II-Mild systemic disease Plan of Care: Pt appropriate candidate for procedure/moderate/conscious sedation , Risks/benefits of procedure/sedation discussed w/ patient/family
[2017-03-03] MEDS: Insulin LISPRO 300 UNITS/3 ML VIAL SQ SCH ×2 (09:07→11:57)
[2017-03-03] MEDS ORDERED: Ranolazine 500 MG TAB.ER.12H PO SCH (09:23)
--- NOTE | 2017-03-03 09:34 | Invasive Diagnostic Lab Proc ---
Name: Jumana Whitmore Date of Study: 03/03/2017 Date: 1950 Ht: 55.9in Medical Record#: [id number] Age: 67 Wt: 115.96lb Gender: Female BSA: 1.41 Order #: [id number] BMI: 26.09 Physicians Procedure Physician: Armond Hutton MD, FACC Referring MD: Referring MD: Staff Name Position Time In Fortunato iWlson RT (R) Scrub 08:38 AM Yasmin Olvera RT (R) Monitor 08:38 AM Domitila Skelton RN Delivery Merchandiser 08:38 AM Indications Indication Non-Stemi Procedures Performed Procedure L HRT ART/GRFT ANGIO Pre-Procedure Checklist Informed consent is complete signed and on chart. H\\T\\P is on chart. ID band is on and ID verified with patient. Patient NPO for procedure The procedure was described for the patient and questions were answered. Blood Pressure: 140/83 ECG is on chart. Rhythm: NSR Plan of Care Patient will tolerate the procedure without complications. Adequate level of comfort will be maintained. Hemodynamics will remain stable Patient will recover from procedure without complications. Respiratory function will be maintained. Cardiac rhythm will remain stable. Patient temperature will be maintained. Patient and/or family have verbalized understanding of the procedure. Patient Education Chief Complaint/Reason for Test: Cardiac Cath Developmental Category: Geriatric (65+ years) Developmentally Appropriate for Age: Yes Learning Barriers: None Education Needs: Procedure Education Method: Verbal Information Taught: Cardiac Cath Educational Evaluation: Able to repeat information Intravenous Access Time IV Size Location DC'd Fluid/Drip Rate Units RN 08:10 AM 20g 1 /" Patent On Arrival Rt Antecubital 0.9NaCl 25 ml/hr Allergies Cefaclor isosorbide *HR* CODEINE Penicillins hydrocodone acetaminophen Vital Signs Time BP (mmHg) HR (bpm) O2 Sat. RR (bpm) LOC 08:36 AM 140 / 83 83 97 % 23 08:39 AM 140 / 70 81 95 % 20 08:42 AM 114 / 76 87 96 % 18 08:45 AM 108 / 75 83 90 % 18 08:48 AM 111 / 62 72 93 % 12 08:51 AM 98 / 69 88 90 % 13 08:54 AM 110 / 71 67 93 % 14 08:57 AM 121 / 62 70 93 % 13 08:59 AM 118 / 64 71 93 % 11 09:00 AM 109 / 63 82 92 % 14 09:03 AM 107 / 59 75 92 % 12 09:09 AM 106 / 71 74 91 % 14 09:12 AM 99 / 56 73 92 % 13 Procedural Medications Time Medication Dose Units Method Given By 08:39 AM Oxygen 2 L/min nasal cannula Domitila Skelton RN 08:43 AM Versed 2 mg Intravenous Domitila Skelton RN 08:43 AM Fentanyl 50 mcg Intravenous Domitila Skelton RN 08:48 AM Lidocaine 2% 20 ml Subcutaneous Armond Hutton MD, [facility] ASA Classification: CLASS II- Mild systemic disease (i.e. well-controlled diabetes, hypertension, asthma, cigarette smoking) Steven Score Preprocedure Postprocedure Activity 2- Moves 4 extremities sustained head lift Activity 2- Moves 4 extremities sustained head lift Circulation 2- SBP +/= 20 points of pre-anesthetic level Circulation 2- SBP +/= 20 points of pre-anesthetic level Consciousness 2- Awake and alert oriented x 3 Consciousness 2- Awake and alert oriented x 3 O2 Saturation 2- Able to maintain O2 satruation of 92% on room air O2 Saturation 2- Able to maintain O2 satruation of 92% on room air Respiratory 2- Able to deep breathe and cough well Respiratory 2- Able to deep breathe and cough well Total Score 10 Total Score 10 Contrast Agent: Isovue Diagnostic Contrast: 50 ml Total Contrast: 50 ml Fluoro Dose: 94 mGy Procedure Log Time Note Enter By 08:07 AM CathStat 08:35 AM Vitals capture started with the following parameters, Patient=Adult, Interval=3 min, Initial Nrdqzspi=831 mmHg, Deflation Rate=5 mmHg, Cuff placed on Right Arm 08:35 AM Recorded ECG: HR=91 Condition=Condition 1 08:36 AM HR=83 bpm, LRTI=921/83 mmhg, SpO2=97.0 %, Resp=23 B/min 08:38 AM Pt arrived to color laboratory technician 2 at 08:38 scoates 08:38 AM Fortunato Wilson RT (R) Position: Scrub Time in: 08:38 scoates 08:38 AM Yasmin Olvera RT (R) Position: Monitor Time in: 08:38 scoates 08:39 AM Domitila Skelton RN Position: Delivery Merchandiser Time in: 08:38 scoates 08:39 AM Patient charges- Angio tray pack, Navilyst 3mm J, Pulse Oximetry and ACIST tubing and transducer scoates 08:39 AM Case Delayed No scoates 08:39 AM Physician arrived 08:39 scoates 08:39 AM Meet and greet completed scoates 08:39 AM Sign in performed according to hospital policy. scoates 08:39 AM Procedure start 08:39 scoates 08:39 AM HR=81 bpm, TIBD=158/70 mmhg, SpO2=95.0 %, Resp=20 B/min 08:39 AM Hair removed from procedure site in holding area using clippers. Bilateral groin prepped with Chloraprep by Racheal Harrell (R), safety strap applied then patient was draped. Skin intact. scoates 08:41 AM Time: 08:39 Oxygen on at 2 L/min per nasal cannula by Domitila Skelton RN scoates 08:42 AM HR=87 bpm, XETT=530/76 mmhg, SpO2=96.0 %, Resp=18 B/min 08:43 AM Time: 08:43 Versed 2 mg Intravenous Given by Domitila Skelton RN tsites 08:43 AM Time: 08:43 Fentanyl 50 mcg Intravenous Given by Domitila Skelton RN tsites 08:44 AM Clinical Presentation: Non-STEMI tsites 08:45 AM HR=83 bpm, URJL=387/75 mmhg, SpO2=90.0 %, Resp=18 B/min 08:48 AM HR=72 bpm, GHRU=684/62 mmhg, SpO2=93 %, Resp=12 B/min 08:48 AM Time out performed according to hospital policy tsites 08:49 AM Time: 08:48 20 ml Lidocaine 2% to right groin Subcutaneous Given by Armond Hutton MD, [facility] tsites 08:51 AM HR=88 bpm, NIBP=98/69 mmhg, SpO2=90 %, Resp=13 B/min 08:52 AM Access obtained by percutaneous puncture. 6Fr 10cm Terumo Rea sheath placed in right Femoral artery. [id number] tsites 08:52 AM 0.035 145cm Navilyst 3mmJ wire [id number] tsites 08:52 AM Wire removed tsites 08:53 AM 0.035 145cm VSI Nicolas-Torque wire [id number] tsites 08:53 AM 5Fr FR 4 catheter inserted over the wire DNC tsites 08:53 AM NIBP STAT measurement started. 08:54 AM HR=67 bpm, VOJE=075/71 mmhg, SpO2=93 %, Resp=14 B/min 08:54 AM RCA angiography performed in multiple views. tsites 08:54 AM Recorded Pressure: Ao, HR=81, Condition=Condition 1 (Aorta) Ao 139/65/89 08:56 AM SVG to the 1st OM angio performed in multiple views. tsites 08:56 AM wire reinserted catheter removed tsites 08:56 AM 5Fr FL 4 catheter inserted over the wire DN tsites 08:57 AM HR=70 bpm, KOHM=684/62 mmhg, SpO2=93.0 %, Resp=13 B/min 08:57 AM LCA angiography performed in multiple views. tsites 08:58 AM Recorded Pressure: Ao, HR=72, Condition=Condition 1 (Aorta) Ao 76/52/63 08:58 AM NIBP STAT measurement started. 08:59 AM HR=71 bpm, NDGT=743/64 mmhg, SpO2=93 %, Resp=11 B/min 08:59 AM wire reinserted catheter removed tsites 08:59 AM 5Fr Pigtail catheter inserted over the wire [facility] tsites 09:00 AM HR=82 bpm, OVYP=515/63 mmhg, SpO2=92 %, Resp=14 B/min 09:00 AM Recorded Pressure: LV, HR=70, Condition=Condition 1 (Left Ventricle) LV 74/17/18 09:00 AM Catheter selectively placed in left ventricle tsites 09:00 AM Bolus angiogram of left Ventricle complete: 10 ml/sec for a total of 30 mls tsites 09:01 AM Recorded Pressure: LV, Ao, HR=83, Condition=Condition 1 (Left Ventricle) LV -1/-4/-4, (Aorta) Ao 108/61/85 09:01 AM Recorded Pressure: LV, Ao, HR=82, Condition=Condition 1 (Left Ventricle) LV 244/244/-2, (Aorta) Ao 84/47/66 09:01 AM Recorded Pressure: LV, HR=81, Condition=Condition 1 (Left Ventricle) LV 2/-2/2 09:03 AM HR=75 bpm, BIVY=699/59 mmhg, SpO2=92 %, Resp=12 B/min 09:06 AM Bolus angiogram of right Femoral complete: 2 ml/sec for a total of 4 mls tsites 09:07 AM Procedure completed at 09:07 tsites 09:08 AM Sign out completed: Radiation Dose 94 mGy Fluoro Time: 1.4 Isovue 370 - 500ml contrast 50 ml given by Armond Hutton MD, FACC. Complications: NoneCardiac Rehab Consult needed: NoConfirmed administered medications: Yes tsites 09:08 AM Arterial sheath pulled, Mynx closure device used and was Successful S/N. tsites 09:08 AM Post ECG NSR tsites 09:08 AM Post Blood Pressure 107/69 tsites 09:08 AM 09:08 Post Pulses Bilateral DP \\T\\ PT 1+ tsites 09:08 AM Information taught Cardiac Cath and Mynx tsites 09:09 AM HR=74 bpm, EZLA=308/71 mmhg, SpO2=91.0 %, Resp=14 B/min 09:09 AM manual compression for 5 minutes by Fortunato Wilson RT (R) tsites 09:10 AM Education needs Procedure, Plan of Care, and Responsibilities of Patient in Care tsites 09:10 AM Learning barriers :None tsites 09:10 AM Education Methods Verbal tsites 09:10 AM Education evaluation Able to repeat information tsites 09:11 AM Site status No bleeding/hematoma - Rt Groin as reported by Fortunato Wilson RT (R) at 09:10 tsites 09:12 AM HR=73 bpm, NIBP=99/56 mmhg, SpO2=92 %, Resp=13 B/min 09:14 AM Site status No bleeding/hematoma - Rt Groin as reported by Fortunato Wilson RT (R) at 09:14 tsites 09:14 AM Opsite applied tsites 09:14 AM no family at this time tsites 09:15 AM Vitals capture stopped. 09:17 AM Report given to quinten QUIÑONES Pt taken to 2A Room #33. 09:16 tsites 09:17 AM Delay to floor No tsites 09:17 AM Patient out of room: 09:17 tsites 09:17 AM Coronary Dominance: right tsites 09:17 AM Lesion found in LMCA. Pre Stenosis: 50 Pre MARTY Flow: tsites 09:17 AM Lesion found in Proximal LAD. Pre Stenosis: 20 Pre MARTY Flow: tsites 09:18 AM Lesion found in 1st Marginal. Pre Stenosis: 90 Pre MARTY Flow: tsites 09:19 AM Lesion found in Proximal RCA. Pre Stenosis: 60 Pre MARTY Flow: tsites 09:22 AM Lesion found in Right PDA. Pre Stenosis: 90 Pre MARTY Flow: tsites 09:23 AM Left Main Coronary Artery with 50% stenosis tsites 09:23 AM Proximal Left Anterior Descending Coronary Artery with 20% stenosis. If graft is supplying this territory, 0 % stenosis. tsites 09:23 AM Circumflex, Obtuse Marginal, Left Posterior Descending, and Left Posterolateral Coronary Arteries with 90 % stenosis. If graft is supplying this area, 0 % stenosis tsites 09:24 AM Right Coronary, Right Posterior Descending Arteries with Right Posterolateral and Acute Marginal branches with 90 % stenosis. If graft is supplying this area, 0 % stenosis tsites Complications Complication None Hemodynamics Pressures Site Systolic/A Wave Diastolic/V Wave Mean AO 139 65 89 AO 76 52 63 LV 74 17 18 LV 2 -2 2 LV 244 244 -2 AO 84 47 66 LV -1 -4 -4 AO 108 61 85 Post Procedure Information Blood Pressure: 107/69 mmHg Rhythm: NSR Post procedural instructions were given Closure Device Time Device Success/Fail 03/03/2017 9:19:00 AM Mechanical Compression Successful Site Checks Time Location Status Staff Sheath In? Note 09:10 AM Rt Groin No bleeding/hematoma Fortunato Wilson RT (R) 09:14 AM Rt Groin No bleeding/hematoma Fortunato Wilson RT (R) Pulses Time Site Pre-Procedure Post-Procedure Note Bilateral DP \\T\\ PT 2+ Bilateral radial 2+ 9:08:00 AM Bilateral DP \\T\\ PT 1+ Updated by Yasmin Olvera RT (R) on 03/03/2017 9:28:19 AM Yasmin Olvera RT electronically signed on 03/03/2017 9:29:03 AM with status of Final
--- NOTE | 2017-03-03 10:33 | Internal Med Progress Note ---
<Reji Valencia - Last Filed: 03/03/17 10:31> Date of Encounter: 03/03/17 Time of Encounter: 10:30 - Assessment and plan (1) NSTEMI (non-ST elevated myocardial infarction) Current Visit: Yes Status: Acute Assessment and plan: Patient's initial troponin levels were negative. Repeat troponin levels were 0.19. -Troponin levels increased to a high of 2.81, but later decreased to 1.74. -Patient was immediately seen, and had no significant findings on physical exam. -She did not having any chest pain, sweating, nausea, vomiting, shortness of breath. (2) Chest pain Current Visit: Yes Status: Acute Assessment and plan: Patient denies having chest pain at the present time. -Patient's chest pain was likely secondary to NSTEMI. -Patient took 3 nitroglycerin at home when she started experiencing her chest pain, but they were ineffective. -Cath was performed, no issues found. Qualifiers: Chest pain type: chest pain due to myocardial ischemia Ischemic chest pain type: stable angina pectoris Qualified Code(s): I20.8 - Other forms of angina pectoris (3) HTN (hypertension) Current Visit: No Status: Chronic Assessment and plan: Continue Home medications. Qualifiers: Hypertension type: essential hypertension Qualified Code(s): I10 - Essential (primary) hypertension (4) Type 2 diabetes mellitus Current Visit: No Status: Chronic Qualifiers: Diabetes mellitus complication status: with unspecified complications Diabetes mellitus termite control technician insulin use: unspecified termite control technician insulin use status Qualified Code(s): E11.8 - Type 2 diabetes mellitus with unspecified complications - Subjective Interval history: Patient was seen and examined at bedside this morning. She states her procedure went well. Patient feels somewhat tired, but otherwise feels well. She denies having any pain in her chest, shortness of breath, nausea, vomiting, diaphoresis, or GI distress. - Constitutional Vitals: Temp Pulse Resp BP Pulse Ox 97.6 F 72 16 107/67 96 03/03/17 10:19 03/03/17 10:19 03/03/17 10:19 03/03/17 10:19 03/03/17 10:19 General appearance: Present: A&O X 3, no acute distress - ENT ENT exam: Present: mucous membranes moist - Respiratory Respiratory exam: Present: CTAB. Absent: accessory muscle use, rales, rhonchi, wheezes - Cardiovascular Cardiovascular exam: Present: RRR, +S1, +S2. Absent: diastolic murmur, gallop, rubs, systolic murmur - GI/Abdominal GI/Abdominal exam: Present: normal bowel sounds, soft, no peritoneal signs. Absent: distended, tenderness - Psychiatric Psychiatric exam: Present: normal affect, normal mood Internal Medicine: Result - Labs CBC & Chem 7: 03/03/17 05:03 03/03/17 05:03 Labs: Short CBC 03/03/17 Range/Units 05:03 WBC 8.0 (4.3-11.1) K/mcL Hgb 13.1 (11.5-15.4) g/dL Hct 39.1 (35.3-44.9) % Plt Count 232 (140-400) K/mcL Neutrophils # 4.2 (1.6-8.9) K/mcL BMP 03/03/17 05:03 Sodium 140 Potassium 3.5 Chloride 107 Carbon Dioxide 24 BUN 10 Creatinine 0.76 Glucose 231 H Calcium 9.0 D Cardiac Enzymes 03/02/17 03/02/17 Range/Units 10:18 16:49 Troponin I 2.81 H* 1.74 H* (0-0.03) ng/mL - ABG Interpretation ABG results: PT/INR, D-dimer PT 11.8 Seconds (9.4-12.1) 03/02/17 01:20 Consult Discharge Plan - Plan Instructions: Myocardial Infarction (DC), Chest Pain (DC), Diabetes Mellitus Type 2 in Adults (DC) Referrals: Dana Paige CNP [Primary Care Provider] - 03/11/17 1:45 pm (web request) Prescriptions: Metoprolol XL (24 HR) Succ [Toprol Xl] 12.5 mg PO DAILY #30 tab.er.24h Ranolazine [Ranexa] 1,000 mg PO BID #60 tab.er.12h <Leo Dickson - Last Filed: 03/03/17 16:59> Date of Encounter: 03/03/17 - Constitutional Vitals: Temp Pulse Resp BP Pulse Ox 97.7 F 74 16 102/69 96 03/03/17 11:39 03/03/17 12:45 03/03/17 12:45 03/03/17 12:45 03/03/17 12:45 Internal Medicine: Result - Labs CBC & Chem 7: 03/03/17 05:03 03/03/17 05:03 Labs: Short CBC 03/03/17 Range/Units 05:03 WBC 8.0 (4.3-11.1) K/mcL Hgb 13.1 (11.5-15.4) g/dL Hct 39.1 (35.3-44.9) % Plt Count 232 (140-400) K/mcL Neutrophils # 4.2 (1.6-8.9) K/mcL BMP 03/03/17 05:03 Sodium 140 Potassium 3.5 Chloride 107 Carbon Dioxide 24 BUN 10 Creatinine 0.76 Glucose 231 H Calcium 9.0 D Cardiac Enzymes 03/02/17 Range/Units 16:49 Troponin I 1.74 H* (0-0.03) ng/mL - ABG Interpretation ABG results: PT/INR, D-dimer PT 11.8 Seconds (9.4-12.1) 03/02/17 01:20 - Attending Attestation Please see discharge summary of same date.
--- NOTE | 2017-03-03 12:12 | Electrocardiograph Report ---
[place] [id number] Test Date: 2017-03-02 Pat Name: Jumana Whitmore Department: 105 Room: 2A Gender: F Head Shipper: : 1950 Requested By: Manuel Cabrales Order Number: [id number] Reading MD: Armond Hutton MD Measurements Intervals [place] Rate: 86 P: 62 UT: 180 QRS: 43 QRSD: 74 T: 50 QT: 337 QTc: 380 Interpretive Statements SINUS RHYTHM BASELINE ARTIFACT Electronically Signed On 03-03-2017 12:10:41 EDT by Armond Hutton MD
--- NOTE | 2017-03-03 12:45 | Invasive Diagnostic Lab ---
Name: Jumana Whitmore Date of Study: 03/03/2017 Date: 1950 Ht: 142.0 cm /55.9 in Medical Record#: [id number] Age: 67 Wt: 52.6 kg / 115.96 lb Account/Order#: [id number] Gender: Female BSA: 1.41 Order #: [id number] Fluoro Dose: 94 mGy BMI: 26.09 Procedure Physician: Armond Hutton MD, FACC Referring MD: Referring MD: Procedures Performed: LEFT HEART CATH W/ GRAFTS Indications: Non-Stemi Impressions: The left ventricle is normal and has normal contractility EF 55% S/P CABG 1 of 2 patent bypass grafts. Patent ostial RCA and LMCA stent with moderate instent restenosis Severe small vessel disease Recommendations: Optimal medical therapy of patient's disease. Aggressive risk factor modification. History/Risk Factors: LM stent 04/2016 Diabetes Hypertension Dyslipidemia CHF Prior [place] Previous PCI Date: 04/25/2016 Previous CABG Procedure Access obtained in the right Femoral artery by percutaneous puncture Complications: None Contrast: Isovue 50ml Closure Device: Mechanical Compression Hemodynamics: Pressures Site Systolic/ A Wave Diastolic/ V Wave End Diastolic/ Mean HR AO 139 65 89 81 AO 76 52 63 72 LV 74 17 18 70 LV 2 -2 2 81 LV 244 244 -2 85 AO 84 47 66 82 LV -1 -4 -4 85 AO 108 61 85 82 LV Ventriculography Ejection Method: LV Gram Ejection Fraction: 55% Wall Motion: HARRIS Anterobasal Normal Anterolateral Mild Hypokinesis Apical: Normal Inferoapical Mild Hypokinesis Inferobasal Normal Coronary Dominance: right Lesion Findings/Interventions * Left Main Coronary Artery There is a 40% instent restenosis in the LMCA. * Left Anterior Descending There is a 20% stenosis in the Proximal LAD. * Circumflex The 1st Marginal is small in size. There is a 90% stenosis in the distal 1st Marginal. * Right Coronary Artery There is a 60% in stent restenosis in the Proximal RCA. The lesion has no thrombus present. There are sequential 90% stenosis in the Right PDA. This vessel is small in size. Additional Findings: Grafts * The saphenous vein graft to the 1st Marginal is patent. Updated by Yasmin RT Wade (R) on 03/03/2017 9:29:08 AM Armond Hutton MD, FACC electronically signed on 03/03/2017 12:39:36 PM with status of Final
--- NOTE | 2017-03-03 13:18 | Event Note ---
Date of Encounter: 03/03/17 Time of Encounter: 13:15 - Cardiology Event Note Discussed [facility] results with Dr. Hutton: patent stents with otherwise non- obstructive CAD; significant small vessel CAD likely etiology of NSTEMI. Medical therapy recommended--uninterrupted DAPT (asa+brilinta), statin, and betablocker. Ranexa 1000 mg BID started. Cardiac rehab consulted. Cardiology will sign-off; will coordinate appt in the outpatient setting.
[2017-03-03 13:23] VITALS: BP 102/69
--- NOTE | 2017-03-03 14:28 | Discharge Summary ---
<ErikReji - Last Filed: 03/03/17 14:25> Date of Encounter: 03/03/17 Time of Encounter: 10:30 - Discharge Diagnosis (1) NSTEMI (non-ST elevated myocardial infarction) Priority: Primary Status: Resolved (2) Chest pain Priority: Secondary Status: Resolved Qualifiers: Chest pain type: chest pain due to myocardial ischemia Ischemic chest pain type: stable angina pectoris Qualified Code(s): I20.8 - Other forms of angina pectoris (3) HTN (hypertension) Priority: Secondary Status: Chronic Qualifiers: Hypertension type: essential hypertension Qualified Code(s): I10 - Essential (primary) hypertension (4) Type 2 diabetes mellitus Priority: Secondary Status: Chronic Qualifiers: Diabetes mellitus complication status: with unspecified complications Diabetes mellitus rn long term care insulin use: unspecified assisted insulin use status Qualified Code(s): E11.8 - Type 2 diabetes mellitus with unspecified complications - Discharge Medications Prescriptions: Metoprolol XL (24 HR) Succ [Toprol Xl] 12.5 mg PO DAILY #30 tab.er.24h Ranolazine [Ranexa] 1,000 mg PO BID #60 tab.er.12h Home Medications: FluocinoLONE Acet 0.025% CRM [Fluocinolone Acet 0.025% CRM] 1 appl TP BID [History] Insulin ASPART [Novolog Flexpen] 20 unit SQ TID 04/30/16 [History] Insulin Glargine,Hum.rec.anlog [Lantus Solostar] 30 unit SQ DAILY 04/30/16 [ History] Nitroglycerin [Nitrostat] 0.4 mg SL AD PRN 04/30/16 [History] Omeprazole [PriLOSEC] 40 mg PO BID 04/30/16 [History] Potassium Chloride [K-Tab ER] 10 meq PO DAILY 04/30/16 [History] Sertraline [Zoloft] 25 mg PO DAILY 04/30/16 [History] traMADol [Ultram] 50 mg PO Q6H PRN 04/30/16 [History] Aspirin Enteric Coated [Aspirin EC] 81 mg PO DAILY #30 tablet.dr 05/03/16 [Rx] Atorvastatin Calcium [Lipitor] 80 mg PO HS #30 tablet 05/10/16 [Rx] Lisinopril 2.5 mg PO DAILY #30 tablet 05/10/16 [Rx] Ticagrelor [Brilinta] 90 mg PO BID #60 tablet 05/10/16 [Rx] Doxepin HCl 50 mg PO HS 03/03/17 [History] Metoprolol XL (24 HR) Succ [Toprol Xl] 12.5 mg PO DAILY #30 tab.er.24h 03/03/17 [Rx] Oxycodone HCl/Acetaminophen [Percocet 5-325 mg Tablet] 1 tab PO Q8H PRN [History] Primidone [Mysoline] 50 mg PO BID 03/03/17 [History] Ranolazine [Ranexa] 1,000 mg PO BID #60 tab.er.12h 03/03/17 [Rx] Tiotropium [Spiriva] 18 mcg IH DAILY 03/03/17 [History] Triamterene/HCTZ 37.5/25mg [Dyazide] 0.5 tab PO DAILY 03/03/17 [History] Allergies/Adverse Reactions: Allergies acetaminophen [From Vicodin] Allergy (Verified 03/02/17 11:44) Hives hydrocodone [From Vicodin] Allergy (Verified 03/02/17 11:44) Hives Penicillins Allergy (Verified 03/02/17 11:44) Rash codeine Adverse Reaction (Verified 03/02/17 11:44) Itching isosorbide Adverse Reaction (Verified 03/02/17 11:44) Headache Procedures/tests Complete & Pending: Procedures Performed prior 72 hours Category Date Time Status CL Cardiac Catheterization [CL] Routine [employer] Supervisor 03/03/17 07:00 Completed EV limited echocardiogram Routine Y 03/02/17 11:34 Completed Date of admission: 03/02/17 05:35 Primary care physician: Dana Paige CNP Consults: 03/02/17 05:36 Consult to Cardiology [CONS] Routine Comment: Consulting Provider: Cardiology Kamla Reason for Consult: please evaluate for NSTEMI in this patinet with significant cardiac history. Call Completed: No 03/02/17 11:26 Consult to Cardiac Rehabilitation-Phase1 [CONS] Routine Comment: Reason for Consult: NSTEMI Call Completed: No Discharging clinician: Reji Valencia Anticipated date of discharge: 03/03/17 - Patient Status Disposition: Home, Self-Care Condition: Good Functional capacity at discharge: independent ambulation Overall status at discharge: patient is progressing back to baseline - Discharge Instructions Instructions: Myocardial Infarction (DC), Chest Pain (DC), Diabetes Mellitus Type 2 in Adults (DC) Follow Up With: Dana Paige CNP [Primary Care Provider] - 03/11/17 1:45 pm (web request) - Diet and Activity Activity: increase activity as tolerated Diet: advance to your usual diet Hospital course: Ms. Whitmore is a 67 year old female who presented to the ED complaining of chest pain. She has a past medical history of CAD. She was eating dinner and watching TV while she felt pain in her substernal area. Pain was 9/10. Worse with deep inspiration or coughing. Patient tried to relieve pain with 3 nitroglycerins to no effect. Vitals on admission were stable: Temperature 97.4 , pulse 89, respiratory rate 18, BP 139/54. On presentation she had both chest pain and a dry, hacking cough. She denied n/v, fever or sweating. Both morphine and heparin drip were started in ED. Aspirin, Plavix, and statin were continued in the hospital. Troponin levels were was negative on admission, but cheryl to 0.19. The next day her troponin levels increased to 2.81. At this time , patient was examined to determine if she was having chest pain. She denied having any chest pain, sweating, shortness of breath, nausea, or vomiting. Patient was observed at this time. A repeat troponin after this measurement was 1.74. Her only complaint in the hospital was pain in her knees, possibly secondary to arthritis, that she had been experiencing for many years. During her stay, cardiology was consulted, and cardiac catheterization was performed. Cardiac catheter yielded the following impressions: Patent ostial RCA L MCA stent with moderate in-stent restenosis, severe small vessel disease, ejection fraction 55%. Cardiology advises optimal medical therapy of patient's disease, as well as aggressive risk factor modification. At no point during her stay in the hospital she experience any chest pain. Patient's condition is stable on discharge. - Time Spent with Patient Total time spent providing and/or coordinating discharge services: Greater than 30 minutes - Constitutional Vitals: Temp Pulse Resp BP Pulse Ox 97.7 F 74 16 102/69 96 03/03/17 11:39 03/03/17 12:45 03/03/17 12:45 03/03/17 12:45 03/03/17 12:45 General appearance: Present: A&O X 3, no acute distress - ENT ENT exam: Present: mucous membranes moist - Respiratory Respiratory exam: Present: CTAB. Absent: accessory muscle use, rales, rhonchi, wheezes - Cardiovascular Cardiovascular exam: Present: RRR, +S1, +S2. Absent: diastolic murmur, gallop, rubs, systolic murmur - GI/Abdominal GI/Abdominal exam: Present: normal bowel sounds, soft, no peritoneal signs. Absent: distended, tenderness - Psychiatric Psychiatric exam: Present: normal affect, normal mood <Leo Dickson - Last Filed: 03/03/17 16:52> Date of Encounter: 03/03/17 Procedures/tests Complete & Pending: Procedures Performed prior 72 hours Category Date Time Status CL Cardiac Catheterization [CL] Routine [employer] Supervisor 03/03/17 07:00 Completed EV limited echocardiogram Routine Y 03/02/17 11:34 Completed Date of admission: 03/02/17 05:35 Primary care physician: Dana Paige CNP Consults: 03/02/17 05:36 Consult to Cardiology [CONS] Routine Comment: Consulting Provider: Cardiology Kamla Reason for Consult: please evaluate for NSTEMI in this patinet with significant cardiac history. Call Completed: No 03/02/17 11:26 Consult to Cardiac Rehabilitation-Phase1 [CONS] Routine Comment: Reason for Consult: NSTEMI Call Completed: No Hospital course: Ms. Whitmore is a 67 year old female - Time Spent with Patient Total time spent providing and/or coordinating discharge services: 40min - Constitutional Vitals: Temp Pulse Resp BP Pulse Ox 97.7 F 74 16 102/69 96 03/03/17 11:39 03/03/17 12:45 03/03/17 12:45 03/03/17 12:45 03/03/17 12:45 - Attending Attestation I examined this patient and my medical decision-making was reviewed with the Resident Physician on 03/03/17. I agree with the documented findings, disposition and treatment plan as described except to the extent set forth below. Ms Whitmore had cath today. Tolerated well. Nonobstructive CAD. No fever or chills. OK to be discharged today. Exam Alert. Comfortable Mucus membranes moist Heart reg No wheeze Plan D/C today Follow with PCP and card
[2017-03-03] MEDS ORDERED: Insulin LISPRO 300 UNITS/3 ML VIAL SQ SCH (21:00)
== END 2017-03-03 17:49 | disposition home or self-care (01) | DRG 281 ==
LOC: 2ANU 00:44 → EMEROO 00:44 → 2ANU 05:31
PROVIDERS: ADMIT Internal Medicine Endocrinology, Diabetes & Metabolism; ATTEND Internal Medicine

== ENCOUNTER 2022-06-20 16:32 | Inpatient (IN) ==
[2022-06-21] MEDS ORDERED: *HR* FentaNYL (PF) 100 MCG/2 ML VIAL IVP ONE (00:06)
[2022-06-21 02:30] LABS: Basophils # 0.1 K/mcL (0.0-0.2); Basophils % 0.5 %; Eosinophils # 0.1 K/mcL (0.0-0.6); Eosinophils % 0.5 %; Hematocrit 39.1 % (35.3-44.9); Hemoglobin 12.7 g/dL (11.5-15.4); Immature Granulocytes % 0.4 % (0-4); Lymphocytes # 1.5 K/mcL (0.6-4.6); Lymphocytes % 14.7 %; Mean Corpuscular HGB Conc 32.5 g/dL (31.6-35.5); Mean Corpuscular Hemoglobin 29.3 pg (28.0-33.3); Mean Corpuscular Volume 90.1 fL (83.0-100.0); Mean Platelet Volume 11.1 fL (9.4-12.4); Monocytes # 0.4 K/mcL (0.0-1.3); Monocytes % 3.7 %; Neutrophils # 8.4 K/mcL (1.6-8.9); Platelet Count 223 K/mcL (140-400); Red Blood Count 4.34 M/mcL (3.82-4.97); Red Cell Distribution Width 13.7 % (11.5-14.5); Segmented Neutrophils % 80.2 %; White Blood Count 10.5 K/mcL (4.3-11.1)
[2022-06-21 02:38] LABS: INR 1.5; Prothrombin Time 17.1 Seconds (9.4-12.1)
[2022-06-21 02:40] LABS: Activated Partial Thrombo Time 33.7 Seconds (26.0-36.0)
[2022-06-21 02:47] LABS: Calcium 9.5 mg/dL (8.6-10.3); Potassium 4.1 mEq/L (3.5-5.1)
[2022-06-21] MEDS ORDERED: Melatonin 3 MG TABLET PO PRN (03:06)
[2022-06-21] MEDS ORDERED: Naloxone 0.4 MG/ML INJ IVP PRN (03:06)
[2022-06-21] MEDS ORDERED: Ondansetron ODT 4 MG TAB.RAPDIS SL PRN (03:06)
[2022-06-21] MEDS ORDERED: D5% in Water 1,000 ML IVC PRN (03:12)
[2022-06-21] MEDS ORDERED: *HR* Dextrose 50 % in Water (Syg) 50 ML SYRINGE IVP PRN (03:12)
[2022-06-21] MEDS ORDERED: Dextrose Gel 15 GM/37.5 ML TUBE PO PRN ×2 (03:12)
[2022-06-21] MEDS ORDERED: Albuterol 2.5 MG/3 ML NEBULIZER IH PRN ×2 (03:16→14:00)
[2022-06-21] MEDS ORDERED: Ringers Solution, Lactated 1,000 ML IVC ONE (05:00)
[2022-06-21] MEDS: Insulin LISPRO 300 UNITS/3 ML VIAL SUBQ SCH ×4 (05:52→21:04)
[2022-06-21] MEDS: Budesonide/Formoterol 160/4.5 1 PUFF INH IH SCH ×2 (07:47→20:54)
[2022-06-21] MEDS: Tiotropium 10 INH DOSE IH SCH (07:47)
[2022-06-21] MEDS: Sennosides/Docusate Sodium TABLET PO SCH ×2 (10:17→21:03)
[2022-06-21] MEDS: Metoprolol XL (24 HR) Succ 25 MG TAB.ER.24H PO SCH (10:31)
[2022-06-21] MEDS ORDERED: *HR* Propofol 200 MG/20 ML VIAL IVP ONE (10:57)
[2022-06-21] MEDS ORDERED: Lidocaine -MPF 2% 2 ML VIAL ONE (11:42)
[2022-06-21] MEDS ORDERED: *HR* Rocuronium Bromide 50 MG/5 ML VIAL ONE (11:42)
[2022-06-21] MEDS ORDERED: *HR* Succinylcholine 200 MG/10 ML VIAL IVP ONE (11:42)
[2022-06-21] MEDS ORDERED: Ondansetron 4 MG/2 ML VIAL ONE ×2 (11:42→13:10)
[2022-06-21] MEDS ORDERED: *HR* FentaNYL (PF) 100 MCG/2 ML VIAL ONE (11:42)
[2022-06-21] MEDS ORDERED: Ipratropium/Albuterol Neb 3 ML IH PRN (12:30)
[2022-06-21] MEDS ORDERED: EPHEDrine sulfate 50 MG/10 ML VIAL IVP ONE (12:56)
[2022-06-21] MEDS ORDERED: Acetaminophen IV 1,000 MG/100 ML BAG IVPB ONE (13:10)
[2022-06-21] MEDS ORDERED: Acetaminophen IV 500 MG/50 ML BAG IVPB ONE (13:30)
[2022-06-21] MEDS ORDERED: *HR* Labetalol 20 MG/4 ML SYRINGE IVP PRN (14:00)
[2022-06-21] MEDS ORDERED: *HR* FentaNYL (PF) 100 MCG/2 ML VIAL IVP PRN (14:00)
[2022-06-21] MEDS ORDERED: Ondansetron 4 MG/2 ML VIAL IVP PRN (14:00)
[2022-06-21] MEDS ORDERED: Ipratropium Neb 0.5 MG NEBULIZER IH PRN (14:00)
[2022-06-21] MEDS ORDERED: *HR* OxyCODONE Immed Rel 5 MG TABLET PO PRN (14:00)
[2022-06-21 14:07] LABS: Bacteria,Urine Moderate per hpf (None-Few); Bilirubin,Urine Negative (Negative); Blood,Urine Small (Negative); Clarity,Urine Ex.Turbid (Clear); Color,Urine Yellow (Yellow); Glucose,Urine (UA) Normal (Normal); Ketones,Urine Negative (Negative); Leukocyte Esterase,Urine Large (Negative); Mucus,Urine Few per lpf (None-Few); Nitrite,Urine Positive (Negative); Protein,Urine 30 mg/dL (Neg-Trace); RBC,Urine 15-30 per hpf (0-3); Specific Gravity,Urine 1.016 (1.010-1.025); Urobilinogen,Urine Normal (Normal); WBC,Urine TNTC per hpf (0-3)
[2022-06-21] MEDS: *HR* HYDROmorphone PF 0.5 MG/0.5 ML SYRINGE IVP PRN ×4 (14:14→14:28)
[2022-06-21] MEDS ORDERED: ceFAZolin 1,000 MG in 0.9 % Sodium Chloride 10 ML IVP SCH (16:00)
[2022-06-21] MEDS ORDERED: levoFLOXacin 500 MG/100 ML 500 MG/100 ML BAG IVPB SCH (17:00)
[2022-06-21] MEDS: CeFAZolin 2,000 MG/120 ML BAG IVPB SCH (21:03)
[2022-06-21] MEDS: Insulin DETEMIR 100 UNIT/ML X5UNITS SUBQ SCH (21:04)
[2022-06-22] MEDS: CeFAZolin 2,000 MG/120 ML BAG IVPB SCH (05:16)
[2022-06-22] MEDS: *HR* Enoxaparin 30 MG/0.3 ML SYRINGE SQ SCH (09:54)
[2022-06-22] MEDS: Nicotine 14 MG PATCH.TD24 TD SCH (09:55)
[2022-06-22] MEDS: Metoprolol XL (24 HR) Succ 25 MG TAB.ER.24H PO SCH (09:55)
[2022-06-22] MEDS: Sennosides/Docusate Sodium TABLET PO SCH ×2 (09:55→20:42)
[2022-06-22] MEDS: Insulin LISPRO 300 UNITS/3 ML VIAL SUBQ SCH ×4 (09:58→20:43)
[2022-06-22] MEDS ORDERED: NON-FORMULARY MEDICATION 1 EACH EACH (Alendronate Sodium [Fosamax] 70 MG Tablet) PO SCH (10:00)
[2022-06-22] MEDS: Budesonide/Formoterol 160/4.5 1 PUFF INH IH SCH ×2 (10:16→21:54)
[2022-06-22] MEDS: Tiotropium 10 INH DOSE IH SCH (10:16)
[2022-06-22 11:49] LABS: Basophils % 0.3 %; Eosinophils % 0.3 %; Hematocrit 31.5 % (35.3-44.9); Immature Granulocytes % 0.5 % (0-4); Lymphocytes # 1.7 K/mcL (0.6-4.6); Lymphocytes % 13.9 %; Mean Corpuscular HGB Conc 32.1 g/dL (31.6-35.5); Mean Corpuscular Hemoglobin 29.3 pg (28.0-33.3); Mean Corpuscular Volume 91.3 fL (83.0-100.0); Mean Platelet Volume 11.3 fL (9.4-12.4); Monocytes # 0.5 K/mcL (0.0-1.3); Monocytes % 4.3 %; Neutrophils # 9.6 K/mcL (1.6-8.9); Platelet Count 183 K/mcL (140-400); Red Blood Count 3.45 M/mcL (3.82-4.97); Red Cell Distribution Width 13.9 % (11.5-14.5); Segmented Neutrophils % 80.7 %; White Blood Count 11.8 K/mcL (4.3-11.1)
[2022-06-22 11:50] LABS: Hemoglobin 10.1 g/dL (11.5-15.4)
[2022-06-22 12:07] LABS: Calcium 8.9 mg/dL (8.6-10.3); Magnesium 1.5 mg/dL (1.6-2.6); Potassium 4.7 mEq/L (3.5-5.1)
[2022-06-22] MEDS: Carbidopa/Levodopa ER 50/200 TABLET PO SCH (20:43)
[2022-06-22] MEDS: Mirtazapine 15 MG TABLET PO SCH (20:43)
[2022-06-22] MEDS: Insulin DETEMIR 100 UNIT/ML X5UNITS SUBQ SCH (20:44)
[2022-06-22] MEDS ORDERED: NON-FORMULARY MEDICATION 1 EACH EACH (Atorvastatin Calcium [Lipitor] 80 MG Tablet) PO SCH (21:00)
[2022-06-23] MEDS: Carbidopa/Levodopa ER 50/200 TABLET PO SCH ×2 (08:38→21:08)
[2022-06-23] MEDS: Sennosides/Docusate Sodium TABLET PO SCH ×2 (08:38→21:08)
[2022-06-23] MEDS: Gabapentin 300 MG CAPSULE PO SCH (08:38)
[2022-06-23] MEDS: *HR* Enoxaparin 30 MG/0.3 ML SYRINGE SQ SCH (08:38)
[2022-06-23] MEDS: Nicotine 14 MG PATCH.TD24 TD SCH (08:38)
[2022-06-23] MEDS: Metoprolol XL (24 HR) Succ 25 MG TAB.ER.24H PO SCH (08:38)
[2022-06-23] MEDS: Insulin LISPRO 300 UNITS/3 ML VIAL SUBQ SCH ×4 (08:46→21:02)
[2022-06-23] MEDS: Budesonide/Formoterol 160/4.5 1 PUFF INH IH SCH ×2 (10:24→22:43)
[2022-06-23] MEDS: Tiotropium 10 INH DOSE IH SCH (10:25)
[2022-06-23 11:35] LABS: Basophils # 0.1 K/mcL (0.0-0.2); Basophils % 0.6 %; Eosinophils # 0.2 K/mcL (0.0-0.6); Eosinophils % 2.3 %; Hematocrit 30.8 % (35.3-44.9); Hemoglobin 9.9 g/dL (11.5-15.4); Immature Granulocytes % 0.3 % (0-4); Lymphocytes # 1.8 K/mcL (0.6-4.6); Lymphocytes % 20.2 %; Mean Corpuscular HGB Conc 32.1 g/dL (31.6-35.5); Mean Corpuscular Hemoglobin 29.1 pg (28.0-33.3); Mean Corpuscular Volume 90.6 fL (83.0-100.0); Mean Platelet Volume 11.6 fL (9.4-12.4); Monocytes # 0.5 K/mcL (0.0-1.3); Monocytes % 5.5 %; Neutrophils # 6.4 K/mcL (1.6-8.9); Platelet Count 181 K/mcL (140-400); Red Cell Distribution Width 14.1 % (11.5-14.5); Segmented Neutrophils % 71.1 %
[2022-06-23 11:57] LABS: Calcium 8.4 mg/dL (8.6-10.3); Magnesium 1.5 mg/dL (1.6-2.6); Potassium 4.2 mEq/L (3.5-5.1)
[2022-06-23] MEDS: Mirtazapine 15 MG TABLET PO SCH (21:08)
[2022-06-23] MEDS: Insulin DETEMIR 100 UNIT/ML X5UNITS SUBQ SCH (21:08)
[2022-06-24 04:51] LABS: Basophils # 0.1 K/mcL (0.0-0.2); Basophils % 0.6 %; Eosinophils # 0.2 K/mcL (0.0-0.6); Eosinophils % 2.7 %; Hematocrit 31.8 % (35.3-44.9); Hemoglobin 10.3 g/dL (11.5-15.4); Immature Granulocytes % 0.3 % (0-4); Lymphocytes # 1.9 K/mcL (0.6-4.6); Lymphocytes % 21.2 %; Mean Corpuscular HGB Conc 32.4 g/dL (31.6-35.5); Mean Corpuscular Hemoglobin 29.5 pg (28.0-33.3); Mean Corpuscular Volume 91.1 fL (83.0-100.0); Mean Platelet Volume 11.6 fL (9.4-12.4); Monocytes # 0.6 K/mcL (0.0-1.3); Monocytes % 6.4 %; Platelet Count 190 K/mcL (140-400); Red Blood Count 3.49 M/mcL (3.82-4.97); Red Cell Distribution Width 13.9 % (11.5-14.5); Segmented Neutrophils % 68.8 %; White Blood Count 8.7 K/mcL (4.3-11.1)
[2022-06-24 05:15] LABS: Calcium 8.8 mg/dL (8.6-10.3); Magnesium 1.9 mg/dL (1.6-2.6); Potassium 4.2 mEq/L (3.5-5.1)
[2022-06-24] MEDS: Insulin LISPRO 300 UNITS/3 ML VIAL SUBQ SCH ×2 (07:58→12:06)
[2022-06-24] MEDS: *HR* Enoxaparin 30 MG/0.3 ML SYRINGE SQ SCH (07:59)
[2022-06-24] MEDS: Sennosides/Docusate Sodium TABLET PO SCH (08:00)
[2022-06-24] MEDS: Gabapentin 300 MG CAPSULE PO SCH (08:00)
[2022-06-24] MEDS: Nicotine 14 MG PATCH.TD24 TD SCH (08:00)
[2022-06-24] MEDS: Carbidopa/Levodopa ER 50/200 TABLET PO SCH (08:00)
[2022-06-24] MEDS: Metoprolol XL (24 HR) Succ 25 MG TAB.ER.24H PO SCH (08:01)
[2022-06-24] MEDS: Budesonide/Formoterol 160/4.5 1 PUFF INH IH SCH (10:05)
[2022-06-24] MEDS: Tiotropium 10 INH DOSE IH SCH (10:06)
[2022-06-24 11:09] VITALS: BP 103/62; PULSE 90; TEMP 98; O2SAT 95
[2022-06-24] MEDS ORDERED: Apixaban 5 MG TABLET PO SCH (21:00)
== END 2022-06-24 13:19 | disposition home or self-care (01) | DRG 481 ==
LOC: 4WAOSI 16:32 → EMEROOARM 16:32 → SUATTDRO 06-21 01:44 → 4WAOSI 06-21 02:20 → SUATTDRO 06-21 11:46
PROVIDERS: ADMIT Internal Medicine; ATTEND Family Medicine